=== PATIENT | female | born 1960 | race Caucasian/White ===

== ENCOUNTER 2023-08-28 15:16 | Emergency (ER) | payer MEDICARE, MEDICAID ==
[~2023-08-28] VITALS: Ht 162.6 cm; Wt 60.9 kg
[2023-08-28] MEDS ORDERED: dexamethasone sod phosphate 10mg/ml inj IM STA (20:29)
[2023-08-28] MEDS ORDERED: PRED20TA PO (21:41)
[2023-08-28 21:52] VITALS: BP 158/105; PULSE 101; RESP 20; TEMP 97.9; O2SAT 98
== END 2023-08-28 21:54 | disposition home or self-care (01) ==
LOC: ER 15:16
DX: M54.12 Radiculopathy, cervical region (principal); M47.812 Spondylosis without myelopathy or radiculopathy, cervical region; F17.200 Nicotine dependence, unspecified, uncomplicated; Z88.1 Allergy status to other antibiotic agents; Z88.8 Allergy status to other drugs, medicaments and biological substances
CPT/HCPCS: 72040; 96372; 99283; J1100

== ENCOUNTER 2023-12-28 17:30 | Emergency (ER) | payer MEDICARE, MEDICAID ==
[~2023-12-28] VITALS: Ht 162.6 cm; Wt 60.8 kg
[~2023-12-28 17:30] MED LIST: ASPI-1071 PO; ATOM40CA7 PO; ATOR20TA66 PO; BUPR-317 PO; CYCL5TAB PO; EZET10TA48 PO; HYDR100C2 PO; ISOS30TA84 PO; LEVO125T8 PO; LURA40TA4 PO; METO-395 PO; THIA100T70 PO; TRIH2TAB3 PO
[2023-12-28] MEDS ORDERED: SACU1TAB PO (17:39)
[2023-12-28] MEDS ORDERED: TRAZ-251 PO (17:39)
[2023-12-28] MEDS ORDERED: MELO-102 PO (17:39)
[2023-12-28 17:57] LABS: BASOPHILS # (AUTO) 0.1 X10'3 (0-0.2); BASOPHILS % (AUTO) 0.8 % (0-1); EOSINOPHILS # (AUTO) 0.3 X10'3 (0-0.9); EOSINOPHILS % (AUTO) 4.8 % (0-6); HEMATOCRIT 39.3 % (35.0-45.0); HEMOGLOBIN 13.2 g/dl (12.0-16.0); LYMPHOCYTES # (AUTO) 2.1 X10'3 (1.1-4.8); LYMPHOCYTES % (AUTO) 29.7 % (21-51); MEAN CORPUSCULAR HEMOGLOBIN 32.2 PG (27.0-31.0); MEAN CORPUSCULAR HGB CONC 33.6 g/dL (33.0-36.5); MEAN CORPUSCULAR VOLUME 95.9 FL (78-98); MEAN PLATELET VOLUME 7.8 FL (7.4-10.4); MONOCYTES # (AUTO) 0.4 X10'3 (0-0.9); MONOCYTES % (AUTO) 6.3 % (2-12); NEUTROPHILS # (AUTO) 4.1 X10'3 (1.8-7.7); NEUTROPHILS % (AUTO) 58.4 % (42-75); PLATELET COUNT 315 X10'3 (140-440); RED CELL DISTRIBUTION WIDTH 13.9 % (11.5-14.5)
[2023-12-28 18:21] LABS: ALBUMIN 3.2 G/DL (3.4-5.0); ANION GAP 5 (8-16); BLOOD UREA NITROGEN 10 MG/DL (7-18); BUN/CREATININE RATIO 12.8 (10.0-20.0); CALCIUM 8.6 MG/DL (8.5-10.1); CHLORIDE 103 MMOL/L (99-107); CREATININE 0.78 MG/DL (0.40-0.90); GLUCOSE 84 MG/DL (70-104); POTASSIUM 3.8 MMOL/L (3.5-5.1); SODIUM 135 MMOL/L (135-145); TOTAL CARBON DIOXIDE 26.6 MMOL/L (24-32); eCRCL 65 ML/MIN; eGFR 75 ML/MIN
[2023-12-28 18:59] LABS: LIPASE 33 U/L (16-77); PRO BRAIN NATRIURETIC PEPTIDE 220 PG/ML (0-125)
[2023-12-28 19:06] LABS: BILIRUBIN,URINE NEGATIVE (Neg); CLARITY,URINE SLIGHTLY CLOUDY (Clear); COLOR,URINE STRAW (Yellow); GLUCOSE, URINE NEGATIVE (Neg); KETONES,URINE NEGATIVE (Neg); LEUKOCYTE ESTERASE ,URINE SMALL (Neg); NITRITES, URINE NEGATIVE (Neg); OCCULT BLOOD,URINE NEGATIVE (Neg); PH,URINE 5.5 (4.8-8.0); PROTEIN,URINE NEGATIVE (Neg); UROBILINOGEN,URINE 0.2 E.U/dL (0.2-1.0)
[2023-12-28 19:21] LABS: UA COLLECTION TYPE VOIDED
[2023-12-28 19:22] LABS: SQUAMOUS EPITHELIAL CELL,UR MANY /LPF (FEW)
[2023-12-28 19:23] LABS: RBC,URINE NONE SEEN /HPF (0-2); TRANSITIONAL EPI CELLS,URINE FEW /HPF
[2023-12-28 19:24] LABS: BACTERIA,URINE FEW /HPF (Neg); YEAST FEW /HPF (NEGATIVE)
[2023-12-28] MEDS: mag hydrox/Alum hydrox/simeth 30ml oral suspension PO ONE (19:37)
[2023-12-28 19:40] VITALS: BP 132/84; PULSE 81; RESP 17; TEMP 98; O2SAT 98
[2023-12-28] MEDS ORDERED: PANT-47 PO (19:52)
== END 2023-12-28 19:58 | disposition home or self-care (01) ==
LOC: ER 17:30
DX: R10.13 Epigastric pain (principal); Z88.1 Allergy status to other antibiotic agents; Z88.8 Allergy status to other drugs, medicaments and biological substances; Z91.041 Radiographic dye allergy status; Z79.82 Long term (current) use of aspirin; Z79.899 Other long term (current) drug therapy; Z79.2 Long term (current) use of antibiotics
CPT/HCPCS: 36415; 71045; 80048; 81001; 83690; 83880; 84484; 85025; 93005; 99285

== ENCOUNTER → 2024-01-03 | Outpatient (CLI) | payer MEDICARE, MEDICAID ==
[~2024-01-03] MED LIST changes: -HYDR100C2 PO; -ISOS30TA84 PO; +MELO-102 PO; +PANT-47 PO; +SACU1TAB PO; -THIA100T70 PO; +TRAZ-251 PO
== END | disposition home or self-care (01) ==
LOC: RAD 11:57
PROVIDERS: ATTEND Hospitalist
DX: Z79.899 Other long term (current) drug therapy (principal)
CPT/HCPCS: 93005